=== PATIENT | female | born 1960 | race African-American/Black ===

== ENCOUNTER 2019-07-17 08:33 | Emergency (ER) | payer OTHER ==
[~2019-07-17] VITALS: Ht 152.4 cm; Wt 75.0 kg
[2019-07-17] MEDS ORDERED: NAPROXEN 250MG TABLET PO ONE (11:00)
[2019-07-17 13:14] VITALS: BP 159/75
== END 2019-07-17 13:16 | disposition home or self-care (01) ==
LOC: ER 08:33
DX: M54.12 Radiculopathy, cervical region (principal); F17.200 Nicotine dependence, unspecified, uncomplicated; Z71.6 Tobacco abuse counseling
CPT/HCPCS: 73070; 99284; 99406